=== PATIENT | male | born 1970 | race Caucasian/White ===

== ENCOUNTER 2021-01-22 | Emergency (ER) | payer BC ==
[~2021-01-22] MED LIST: FLEXERIL 10 MG10 MG PO
[2021-01-22 01:24] LABS: HEMOGLOBIN 14.5 gm/dl (14.0-17.5); RED BLOOD COUNT 4.43 M/UL (4.20-5.50); WHITE BLOOD COUNT 10.7 K/UL (4.5-11.0)
[2021-01-22 01:38] LABS: BUN/CREATININE RATIO 11 (0-10)
[2021-01-22] MEDS ORDERED: PROTONIX40 MG PO (04:14)
== END 2021-01-22 04:49 | disposition home or self-care (01) ==
LOC: ER1
PROVIDERS: Emergency Medicine
DX: R07.89 Other chest pain (principal); R10.13 Epigastric pain; I10 Essential (primary) hypertension; K21.9 Gastro-esophageal reflux disease without esophagitis
CPT/HCPCS: 71045; 71275; 80053; 82550; 82553; 83690; 83874; 84484; 85025; 93005; 96374; 99285; C9113; Q9967